=== PATIENT | male | born 1950 | race Caucasian/White ===

== ENCOUNTER 2024-09-03 10:05 | Outpatient (CLI) | payer MEDICARE ==
[2024-09-03 13:28] LABS: #Basophils 0.08 10x3/uL (0.0-0.2); %Eosinophils 3.6 % (0.0-10.0); %Lymphocytes 22.5 % (21.0-51.0); %Monocytes 9.7 % (0.0-10.0); %Neutrophils 62.8 % (42.0-75.0); Hemoglobin 15.5 g/dL (14.0-18.0); Mean Corpuscular HGB CONC 33.7 g/dL (32.0-36.0); Mean Corpuscular Hemoglobin 30.3 pg (27.0-31.0); Mean Corpuscular Volume 89.8 fL (78.0-98.0); Mean Platelet Volume 10.9 fL (7.4-10.4); Platelet Count 226 10x3/uL (130-400); RBC Distribution Width 12.7 % (11.5-14.5); Red Blood Cell (RBC) Count 5.12 mill/uL (4.70-6.10)
[2024-09-03 13:48] LABS: ALT (SGPT) 24 U/L (8-55); AST (SGOT) 17 U/L (5-34); Alkaline Phosphatase 76 U/L (40-110); Anion Gap 16 mmol/L (10-20); BUN (Urea Nitrogen) 16 mg/dL (8.4-25.7); Bilirubin, Direct 0.3 mg/dL (0.1-0.3); Bilirubin, Total 0.8 mg/dL (0.2-1.2); Calc. Creatinine Clearance 0 mL/min (70-130); Calcium 9.1 mg/dL (7.8-10.44); Carbon Dioxide 26 mmol/L (23-31); Chloride 105 mmol/L (98-107); Estimated GFR 90; Globulin 2.8 g/dL (2.4-3.5); Glucose 90 mg/dL (83-110); Protein, Total 6.8 g/dL (5.8-8.1); Sodium 143 mmol/L (136-145)
== END 2024-09-03 10:06 | disposition home or self-care (01) ==
LOC: LABBT 10:05
PROVIDERS: ATTEND Internal Medicine Cardiovascular Disease
DX: Z01.812 Encounter for preprocedural laboratory examination (principal); I25.10 Atherosclerotic heart disease of native coronary artery without angina pectoris
CPT/HCPCS: 80053; 80076; 85025

== ENCOUNTER 2024-09-17 14:52 | Outpatient (CLI) | payer MEDICARE | END 2024-09-17 14:53 | disposition home or self-care (01) | LOC: LABBT 14:52 | PROVIDERS: ATTEND Student in an Organized Health Care Education/Training Program | DX: Z01.818 Encounter for other preprocedural examination (principal); I25.10 Atherosclerotic heart disease of native coronary artery without angina pectoris | CPT/HCPCS: 71046; 80048; 85025; 86850; 86900; 86901; 93005; 93010 ==

== ENCOUNTER 2024-10-06 14:18 | Outpatient (CLI) | payer MEDICARE | END 2024-10-06 14:19 | disposition home or self-care (01) | LOC: LABBT 14:18 | PROVIDERS: ATTEND Student in an Organized Health Care Education/Training Program | DX: Z01.812 Encounter for preprocedural laboratory examination (principal); I25.10 Atherosclerotic heart disease of native coronary artery without angina pectoris | CPT/HCPCS: 80048; 85025; 86850; 86900; 86901 ==

== ENCOUNTER 2024-10-06 15:00 | Inpatient (IN) | payer MEDICARE ==
[2024-10-06 14:48] VITALS: BMI 32.8
[2024-10-06 15:26] LABS: #Basophils 0.06 10x3/uL (0.0-0.2); %Basophils 0.5 % (0.0-1.0); %Eosinophils 1.1 % (0.0-10.0); %Lymphocytes 13.5 % (21.0-51.0); %Monocytes 6.8 % (0.0-10.0); %Neutrophils 77.7 % (42.0-75.0); Hematocrit 44.7 % (42.0-52.0); Hemoglobin 15.1 g/dL (14.0-18.0); Mean Corpuscular HGB CONC 33.8 g/dL (32.0-36.0); Mean Corpuscular Hemoglobin 30.3 pg (27.0-31.0); Mean Corpuscular Volume 89.6 fL (78.0-98.0); Mean Platelet Volume 9.9 fL (7.4-10.4); Platelet Count 259 10x3/uL (130-400); RBC Distribution Width 12.7 % (11.5-14.5); Red Blood Cell (RBC) Count 4.99 mill/uL (4.70-6.10)
[2024-10-06 15:49] LABS: Anion Gap 12 mmol/L (10-20); BUN (Urea Nitrogen) 23 mg/dL (8.4-25.7); Calc. Creatinine Clearance 0 mL/min (70-130); Calcium 9.6 mg/dL (7.8-10.44); Carbon Dioxide 28 mmol/L (23-31); Chloride 106 mmol/L (98-107); Estimated GFR 87; Glucose 121 mg/dL (83-110); Potassium 4.5 mmol/L (3.5-5.1); Sodium 141 mmol/L (136-145)
[2024-10-07] MEDS ORDERED: Bupivacaine PF 0.5% 30 ML VIAL ONE (06:33)
[2024-10-07] MEDS ORDERED: PHENYLEPHRINE-NS 100 MCG/ML 10 ML SYRINGE ONE ×3 (06:33→10:33)
[2024-10-07] MEDS ORDERED: EPINEPHrine 1 MG/ML VIAL ONE (06:33)
[2024-10-07] MEDS ORDERED: Albumin 5% 500 ML ONE (06:33)
[2024-10-07] MEDS ORDERED: Heparin 10,000 UNITS/1 ML VIAL 30,000 UNITS in Sodium Chloride 0.9% 1,000 ML FS SCH (07:00)
[2024-10-07] MEDS ORDERED: fentaNYL PF 100 MCG/2 ML SYRINGE ONE ×2 (07:04→10:05)
[2024-10-07] MEDS ORDERED: Midazolam HCl 2 mg/2 ml Vial ONE ×2 (07:05→10:05)
[2024-10-07] MEDS ORDERED: Lidocaine 1% PF 5 ML VIAL ONE (07:11)
[2024-10-07] MEDS ORDERED: Rocuronium Bromide 10 MG/ML (10ML VIAL) ONE ×3 (07:11→09:10)
[2024-10-07] MEDS ORDERED: PROPOFOL 20 ML ONE ×2 (07:12→12:23)
[2024-10-07] MEDS ORDERED: Fentanyl 250 MCG/5 ML VIAL ONE (07:26)
[2024-10-07] MEDS ORDERED: CEFAZOLIN 2 GM VIAL ONE (08:09)
[2024-10-07] MEDS ORDERED: Protamine Sulfate 250 MG/25 ML VIAL ONE (08:30)
[2024-10-07] MEDS ORDERED: Aminocaproic Acid 5 GM/20 ML VIAL ONE (08:30)
[2024-10-07] MEDS ORDERED: Mannitol 12.5 GM/50 ML ONE (08:30)
[2024-10-07] MEDS ORDERED: Calcium Chloride 1 GM/10 ML Abboject SYRINGE ONE (08:30)
[2024-10-07] MEDS ORDERED: Magnesium 5 GM/10 ML VIAL ONE (08:30)
[2024-10-07] MEDS ORDERED: Cardioplegic Soln 1,000 ML BAG ONE (08:30)
[2024-10-07] MEDS ORDERED: Heparin 30,000 units/30 ml VIAL ONE (08:30)
[2024-10-07] MEDS ORDERED: Potassium Chloride 60 mEq (30 mL) VIAL ONE (08:30)
[2024-10-07] MEDS ORDERED: Vancomycin 1 GM VIAL ONE (08:30)
[2024-10-07] MEDS ORDERED: Papaverine 60 MG/2 ML VIAL ONE (08:30)
[2024-10-07] MEDS ORDERED: Sodium Bicarb 50 mEq/50 ML VIAL ONE (08:30)
[2024-10-07] MEDS ORDERED: Heparin 5,000 UNITS/ML VIAL ONE (08:30)
[2024-10-07] MEDS ORDERED: Thrombin 5000 UNITS/5 ML VIAL ONE (08:30)
[2024-10-07] MEDS ORDERED: Lidocaine 2% PF 100 mg/5 ml Syringe ONE (08:30)
[2024-10-07] MEDS ORDERED: Esmolol 100 MG/10 ML VIAL ONE (08:44)
[2024-10-07] MEDS ORDERED: ePHEDrine Sulfate 50 MG/10 ML VIAL ONE (08:47)
[2024-10-07] MEDS ORDERED: Vasopressin 20 UNITS/ML VIAL ONE (10:54)
[2024-10-07] MEDS ORDERED: Heparin 10,000 UNITS/ 10 ML VIAL ONE (11:24)
[2024-10-07] MEDS ORDERED: Insulin Regular, Human 100 UNIT/ML 10 ML VIAL ONE (12:00)
[2024-10-07] MEDS ORDERED: Protamine Sulfate 50 MG/5 ML VIAL ONE (12:17)
[2024-10-07] MEDS ORDERED: Ondansetron PF 4 MG/2 ML Vial ONE (12:24)
[2024-10-07] MEDS ORDERED: Acetaminophen 325 MG TAB PO PRN (13:23)
[2024-10-07] MEDS ORDERED: Bisacodyl 10 MG SUPP PR PRN (13:23)
[2024-10-07] MEDS ORDERED: Promethazine HCl 25 MG/ML VIAL IM PRN (13:23)
[2024-10-07] MEDS ORDERED: Ipratropium/Albuterol 3 ML NEB NEB PRN (13:23)
[2024-10-07] MEDS ORDERED: fentaNYL 50 mcg/mL 1 mL Vial SLOW IVP PRN ×2 (13:23)
[2024-10-07] MEDS ORDERED: Albumin 5% 12.5 GM (250 mL) BOT IVPB PRN ×2 (13:23)
[2024-10-07] MEDS ORDERED: Mag-Al 1200 mg/1200 mg/30 ML UDCUP PO PRN (13:23)
[2024-10-07] MEDS ORDERED: Morphine 2 MG/ML VIAL SLOW IVP PRN (13:23)
[2024-10-07] MEDS ORDERED: NOREPINEPHRINE 8 MG/250 ML-D5W 250 ML IVPB PRN (13:23)
[2024-10-07] MEDS ORDERED: Ondansetron PF 4 MG/2 ML Vial IVP PRN (13:23)
[2024-10-07] MEDS ORDERED: Dextrose 50% Abboject 50 ML SYRINGE SLOW IVP PRN (13:45)
[2024-10-07] MEDS ORDERED: Glucagon 1 MG/ML KIT SC PRN (13:45)
[2024-10-07] MEDS ORDERED: Dextrose 5% in Water 1,000 ML IV PRN (13:45)
[2024-10-07] MEDS: Insulin Regular, Human 100 UNIT/ML 10 ML VIAL SC PRN (13:46)
[2024-10-07 13:52] LABS: Actual Bicarbonate (HCO3a) 22.5 mEq/L (22-28); Base Excess (BEa) -4.2 mEq/L (-2.0 to +3.0); Calcium, Ionized (arterial) 1.16 mmol/L (1.12-1.30); Carboxyhemoglobin (COHb) 0.7 gm% (0.0-3.0); Hematocrit-ABG 40 % (42.0-52.0); Hemoglobin (Hb) 13.5 g/dL (14.0-18.0); O2 Tension (PaO2), arterial 65.4 mmHg (> 70.0); Potassium - ABG Lab 3.73 mmol/L (3.70-5.30); pH, Arterial 7.297 (7.35-7.45)
[2024-10-07 13:56] LABS: Puncture Site Arterial Line
[2024-10-07] MEDS: Magnesium 2 GM/50 ML(in water) 2 GM in Premix 1 BAG IVPB SCH (14:20)
[2024-10-07 14:24] LABS: Calc. Creatinine Clearance 142 mL/min (70-130); Estimated GFR 96
[2024-10-07] MEDS: Post-Op Insulin Drip Protocol IVPB ONE (14:24)
[2024-10-07 14:26] LABS: Band 17 % (5-11); Eosinophils 1 % (0-10); Lymphocytes 4 % (21-51); Monocytes 3 % (0-10); Neutrophil 75 % (42-75); Ovalocytes SLIGHT = 2-5 cells HPF (0-1); Platelet Adequacy Comment Platelets Normal
[2024-10-07] MEDS: Aspirin Chewable 81 MG TAB PO SCH (14:26)
[2024-10-07] MEDS: Sodium Chloride 0.9% 1,000 ML IV SCH (14:26)
[2024-10-07 14:27] LABS: Hematocrit 38.2 % (42.0-52.0); Hemoglobin 13.1 g/dL (14.0-18.0); Mean Corpuscular HGB CONC 34.3 g/dL (32.0-36.0); Mean Corpuscular Hemoglobin 30.8 pg (27.0-31.0); Mean Corpuscular Volume 89.9 fL (78.0-98.0); Mean Platelet Volume 10.4 fL (7.4-10.4); Platelet Count 185 10x3/uL (130-400); RBC Distribution Width 12.7 % (11.5-14.5); Red Blood Cell (RBC) Count 4.25 mill/uL (4.70-6.10)
[2024-10-07 14:40] LABS: INR-International Normal Ratio 1.3
[2024-10-07 14:41] LABS: PTT 32.7 sec (22.9-36.1)
[2024-10-07] MEDS: INSULIN REGULAR IN 0.9 % NACL 100 UNITS in Premix 1 BAG IVPB SCH (14:42)
[2024-10-07 14:57] LABS: Actual Bicarbonate (HCO3a) 24.1 mEq/L (22-28); Base Excess (BEa) -2.9 mEq/L (-2.0 to +3.0); CO2 Tension 50.7 mmHg (35.0-45.0); Calcium, Ionized (arterial) 1.17 mmol/L (1.12-1.30); Carboxyhemoglobin (COHb) 0.6 gm% (0.0-3.0); Hematocrit-ABG 40 % (42.0-52.0); Hemoglobin (Hb) 13.7 g/dL (14.0-18.0); O2 Tension (PaO2), arterial 66.4 mmHg (> 70.0); Potassium - ABG Lab 3.98 mmol/L (3.70-5.30); pH, Arterial 7.294 (7.35-7.45)
[2024-10-07] MEDS: CEFAZOLIN 2 GM in Sodium Chloride 0.9% 100 ML IVPB SCH (14:59)
[2024-10-07 15:00] LABS: ALV-art Gradient 155.425 mmHg (0-20); Puncture Site Arterial Line
[2024-10-07 16:08] LABS: Chloride 113 mmol/L (98-107); Potassium 4.4 mmol/L (3.5-5.1); Sodium 140 mmol/L (136-145)
[2024-10-07 16:10] LABS: Glucose 151 mg/dL (83-110)
[2024-10-07 16:11] LABS: Anion Gap 13 mmol/L (10-20); Carbon Dioxide 18 mmol/L (23-31)
[2024-10-07 16:14] LABS: BUN (Urea Nitrogen) 16 mg/dL (8.4-25.7)
[2024-10-07] MEDS: Ketorolac Tromethamine 30 MG (1 mL) VIAL IVP SCH (17:34)
[2024-10-07 19:32] LABS: Hematocrit 38.7 % (42.0-52.0)
[2024-10-07] MEDS: Famotidine/PF 20 mg/2ml Vial SLOW IVP SCH (19:37)
[2024-10-07] MEDS: HYDROcodone/Acetaminophen 5/325 mg Tablet PO PRN (19:37)
[2024-10-07] MEDS: Atorvastatin Calcium 20 MG TAB PO SCH (19:37)
[2024-10-07 19:42] LABS: Potassium 4.5 mmol/L (3.5-5.1)
[2024-10-08 04:38] LABS: #Basophils 0.04 10x3/uL (0.0-0.2); %Basophils 0.2 % (0.0-1.0); %Eosinophils 0.2 % (0.0-10.0); %Lymphocytes 7.5 % (21.0-51.0); %Monocytes 9.2 % (0.0-10.0); %Neutrophils 82.4 % (42.0-75.0); Hematocrit 36.8 % (42.0-52.0); Hemoglobin 12.3 g/dL (14.0-18.0); Mean Corpuscular HGB CONC 33.4 g/dL (32.0-36.0); Mean Corpuscular Hemoglobin 30.2 pg (27.0-31.0); Mean Corpuscular Volume 90.4 fL (78.0-98.0); Mean Platelet Volume 10.1 fL (7.4-10.4); Platelet Count 180 10x3/uL (130-400); RBC Distribution Width 12.9 % (11.5-14.5); Red Blood Cell (RBC) Count 4.07 mill/uL (4.70-6.10)
[2024-10-08 04:55] LABS: Calc. Creatinine Clearance 125 mL/min (70-130); Estimated GFR 93
[2024-10-08 04:56] LABS: Anion Gap 8 mmol/L (10-20); BUN (Urea Nitrogen) 18 mg/dL (8.4-25.7); Calcium 7.7 mg/dL (7.8-10.44); Carbon Dioxide 24 mmol/L (23-31); Chloride 110 mmol/L (98-107); Glucose 117 mg/dL (83-110); Potassium 4.4 mmol/L (3.5-5.1); Sodium 138 mmol/L (136-145)
[2024-10-08] MEDS: Aspirin 325 MG TAB PO SCH (08:05)
[2024-10-08 11:07] LABS: Hemoglobin A1c 5.6 % (4.0-6.0)
[2024-10-08 11:10] LABS: Cardiac Risk 4.4 (Less than 4.5)
[2024-10-08] MEDS: Tamsulosin HCl 0.4 MG CAP PO SCH (12:17)
[2024-10-08] MEDS: Furosemide 20 MG TAB PO SCH (12:17)
[2024-10-08] MEDS ORDERED: Insulin Glargine 30 UNITS/0.3 ML VIAL SC PRN (13:41)
[2024-10-08] MEDS: Heparin 5,000 UNITS/ML VIAL SC SCH (16:20)
[2024-10-08] MEDS: hydrALAZINE 20 MG/ML VIAL SLOW IVP PRN (17:32)
[2024-10-08] MEDS: Metoprolol Tartrate 25 MG TAB PO SCH (20:00)
[2024-10-09] MEDS: HYDROcodone/Acetaminophen 5/325 mg Tablet PO PRN (03:24)
[2024-10-09 03:46] LABS: #Basophils 0.05 10x3/uL (0.0-0.2); %Basophils 0.3 % (0.0-1.0); %Eosinophils 0.2 % (0.0-10.0); %Lymphocytes 8.2 % (21.0-51.0); %Monocytes 9.8 % (0.0-10.0); %Neutrophils 81.1 % (42.0-75.0); Hematocrit 34.3 % (42.0-52.0); Hemoglobin 11.4 g/dL (14.0-18.0); Mean Corpuscular HGB CONC 33.2 g/dL (32.0-36.0); Mean Corpuscular Hemoglobin 30.3 pg (27.0-31.0); Mean Corpuscular Volume 91.2 fL (78.0-98.0); Platelet Count 163 10x3/uL (130-400); Red Blood Cell (RBC) Count 3.76 mill/uL (4.70-6.10)
[2024-10-09 03:57] LABS: Anion Gap 9 mmol/L (10-20); BUN (Urea Nitrogen) 21 mg/dL (8.4-25.7); Calc. Creatinine Clearance 116 mL/min (70-130); Calcium 8.2 mg/dL (7.8-10.44); Carbon Dioxide 26 mmol/L (23-31); Chloride 103 mmol/L (98-107); Estimated GFR 91; Glucose 112 mg/dL (83-110); Sodium 134 mmol/L (136-145)
[2024-10-09] MEDS: Potassium Chloride 20 MEQ (100 mL) BAG IVPB PRN (05:21)
[2024-10-09] MEDS: Bisacodyl 5 MG TAB PO PRN (20:14)
[2024-10-09] MEDS: Guaifenesin DM 100-10/5 ML UDCUP PO PRN (21:56)
[2024-10-10] MEDS ORDERED: Lisinopril 5 MG TAB PO SCH (09:00)
[2024-10-10] MEDS ORDERED: Lisinopril 2.5 MG TAB PO SCH (09:00)
[2024-10-10] MEDS: Ezetimibe 10 MG TAB PO SCH (09:16)
[2024-10-10] MEDS: Lisinopril 10 MG TAB PO SCH (09:18)
[2024-10-10] MEDS ORDERED: dilTIAZem 125 MG, Admixture Fee 1 EACH in Sodium Chloride 0.9% 100 ML IVPB SCH (09:30)
[2024-10-10] MEDS ORDERED: Diltiazem HCl/D5W 125 MG in Premix 1 BAG IVPB SCH (09:30)
[2024-10-10] MEDS: dilTIAZem 25 MG/5 ML VIAL SLOW IVP SCH (12:23)
[2024-10-10] MEDS ORDERED: Milk Of Magnesia 30 ML UDCUP PO PRN (13:08)
[2024-10-10] MEDS: Metoprolol Tartrate 25 MG TAB PO SCH (20:05)
[2024-10-11] MEDS: Amiodarone 150 MG, Admixture Fee 1 EACH in Dextrose 5% in Water 100 ML IVPB SCH (20:58)
[2024-10-11] MEDS: Rosuvastatin 20 MG TAB PO SCH (21:11)
[2024-10-12] MEDS: dilTIAZem 25 MG/5 ML VIAL SLOW IVP SCH (00:59)
[2024-10-12] MEDS: Amiodarone 450 MG, Admixture Fee 1 EACH in Dextrose 5% in Water 250 ML IVPB SCH (08:02)
[2024-10-12] MEDS: Lisinopril 10 MG TAB PO SCH (11:08)
[2024-10-12] MEDS: Amiodarone 200 MG TAB PO SCH ×2 (11:08→20:54)
[2024-10-12] MEDS ORDERED: dilTIAZem 125 MG/25 ML SDV ONE (11:29)
[2024-10-12] MEDS ORDERED: Sodium Chloride 0.9% 100 ML BAG ONE (11:29)
[2024-10-13] MEDS: Lisinopril 20 MG TAB PO SCH (07:44)
[2024-10-13 15:51] VITALS: BP 144/76; TEMP 98.1
[2024-10-20] MEDS ORDERED: Amiodarone 200 MG TAB PO SCH (09:00)
== END 2024-10-13 18:12 | disposition home or self-care (01) | DRG 236 ==
LOC: SURG A 10-07 06:16 → CCU 10-07 12:25 → PCU 10-08 17:12
PROVIDERS: ADMIT Student in an Organized Health Care Education/Training Program; ATTEND Student in an Organized Health Care Education/Training Program
PROC: 02120AW Bypass Coronary Artery, Three Arteries from Aorta with Autologous Arterial Tissue, Open Approach (ICD-10-PCS; principal; 2024-10-07)
PROC: 02100Z9 Bypass Coronary Artery, One Artery from Left Internal Mammary, Open Approach (ICD-10-PCS; 2024-10-07)
PROC: 06BQ4ZZ Excision of Left Saphenous Vein, Percutaneous Endoscopic Approach (ICD-10-PCS; 2024-10-07)
PROC: 02L70ZK Occlusion of Left Atrial Appendage, Open Approach (ICD-10-PCS; 2024-10-07)
PROC: 5A1221Z Performance of Cardiac Output, Continuous (ICD-10-PCS; 2024-10-07)
PROC: 4A133R1 Monitoring of Arterial Saturation, Peripheral, Percutaneous Approach (ICD-10-PCS; 2024-10-07)
PROC: 3E033XZ Introduction of Vasopressor into Peripheral Vein, Percutaneous Approach (ICD-10-PCS; 2024-10-07)
PROC: 4A133R1 Monitoring of Arterial Saturation, Peripheral, Percutaneous Approach (ICD-10-PCS; 2024-10-07)
DX: I25.110 Atherosclerotic heart disease of native coronary artery with unstable angina pectoris (principal); J93.9 Pneumothorax, unspecified; I10 Essential (primary) hypertension; E78.5 Hyperlipidemia, unspecified; K59.00 Constipation, unspecified; I48.91 Unspecified atrial fibrillation
CPT/HCPCS: 36415; 36416; 71045; 80048; 80061; 82805; 83036; 85025; 85610; 85730; 86850; 86900; 86901; 93005; 93010; 93798; 94002; 94150; 97139; A4311; A4648; C1751; C1889; J0171; J0282; J0360; J0665; J1644; J1815; J1885; J2003; J2150; J2250; J2405; J2440; J2704; J2720; J3010; J3370; J3475; J3480; J3490; J7030; J7070; P9045; S0017